=== PATIENT | female | born 1945 | race Hispanic/Latino ===

== ENCOUNTER 2021-12-02 11:04 | Emergency (ER) | payer MEDICARE ==
[~2021-12-02] VITALS: Ht 154.9 cm; Wt 59.0 kg
== END 2021-12-02 11:48 | disposition home or self-care (01) ==
LOC: ER 11:13
DX: Z43.2 Encounter for attention to ileostomy (principal); E78.5 Hyperlipidemia, unspecified; Z98.0 Intestinal bypass and anastomosis status
CPT/HCPCS: 99282